=== PATIENT | female | born 1975 | race Caucasian/White ===

== ENCOUNTER → 2020-11-16 | Outpatient (CLI) | payer SELFPAY | LOC: M LABSMTC 09:42 | PROVIDERS: ATTEND Pediatrics | DX: Z20.822 Contact with and (suspected) exposure to COVID-19 (principal) ==

== ENCOUNTER → 2021-07-08 | Outpatient (CLI) | payer BC ==
[2021-07-08 11:30] LABS: ALBUMIN 3.3 GM/DL (3.2-5.2); ALT/SGPT 38 U/L (12-78); BILIRUBIN,TOTAL 0.2 MG/DL (0.2-1.0); BLOOD UREA NITROGEN 7 MG/DL (7-18); CALCIUM LEVEL 8.8 MG/DL (8.5-10.1); CARBON DIOXIDE LEVEL 29 MEQ/L (21-32); CHLORIDE LEVEL 108 MEQ/L (98-107); CHOLESTEROL LEVEL 197 MG/DL (<200); CHOLESTEROL RISK RATIO 2.626 (<5); CREATININE FOR GFR 0.62 MG/DL (0.55-1.30); FERRITIN 18 NG/ML (8-252); FREE T4 0.87 NG/DL (0.76-1.46); GLOMERULAR FILTRATION RATE > 60.0 (>58); GLUCOSE, FASTING 81 MG/DL (70-100); HDL CHOLESTEROL 75 MG/DL (>40); IRON (FE) 43 UG/DL (50-170); LDL CHOLESTEROL 111 MG/DL (<100); NON-HDL-C 122 MG/DL; PERCENT SATURATION 15.7 % (13.2-45.0); POTASSIUM SERUM 4.1 MEQ/L (3.5-5.1); SODIUM LEVEL 139 MEQ/L (136-145); TOTAL IRON BINDING CAPACITY 274 UG/DL (250-450); TOTAL PROTEIN 6.3 GM/DL (6.4-8.2); TRIGLYCERIDES LEVEL 54 MG/DL (<150)
[2021-07-08 13:14] LABS: HEPATITIS B SURFACE ANTIBODY NEGATIVE (POSITIVE); TOTAL 25(OH) VITAMIN D 45.7 NG/ML (30.0-100.0)
== END ==
LOC: M PLALAB 08:11
PROVIDERS: ATTEND Family Medicine
DX: Z13.29 Encounter for screening for other suspected endocrine disorder (principal)